=== PATIENT | female | born 1990 | race Two or more races ===

== ENCOUNTER 2024-10-29 00:32 | Emergency (ER) | payer MEDICAID, SELFPAY ==
[2024-10-29 00:32] VITALS: BMI 23.8
[2024-10-29 01:43] VITALS: BP 130/83; PULSE 66; RESP 18; TEMP 36.7; O2SAT 97
--- NOTE | 2024-10-29 03:32 | PC.NURSE ---
CALLED N/A 0300, [id number], 0331 pt eloped the er.
== END 2024-10-29 03:32 | disposition left against medical advice (07) ==
PROVIDERS: Emergency Provider Emergency Medicine; PCP Family Medicine
DX: Z53.21 Procedure and treatment not carried out due to patient leaving prior to being seen by health care provider (principal)
CPT/HCPCS: 99281